=== PATIENT | male | born 1945 | race Caucasian/White ===

== ENCOUNTER → 2017-12-30 | Outpatient (CLI) | payer OTHER, MEDICARE ==
[~2017-12-30] VITALS: Ht 175.3 cm; Wt 90.7 kg
[~2017-12-30] MED LIST: AMOXICILLIN875 MG PO; FLOMAX0.4 MG PO; FLONASE 0.05%50 MCG NASAL; HYDROCODON-ACE1 EAC1 PO; LANSOPRAZOLE30 MG PO; LEXAPRO PO; LIPITOR20 MG PO; LYRICA PO; OXYCODONE-ACET1 EAC2 PO; OXYCONTIN PO; OXYIR 5 MG CAPSU5 M1 PO; PEPCID40 MG PO; POTASSIUM20 PO; PRAVACHOL40 MG PO; VITAMIN D1000 UNI1 PO; WELLBUTRIN SR150 MG PO; XANAX 0.25 MG0.25 MG PO
--- NOTE | ~2017-12-30 | S ---
[facility] [place] [address] SURGICAL PATH RPT PROCEDURE Name: ANTIONE ZABALA Room #: REG [facility].#: [id number] Admission: 12/30/17 Date of : 43 Discharge: Report #: [id number] Path Case #: [id number] PATHOLOGY REPORT COLLECTION DATE: 12/30/2017 RECEIVED DATE: 12/30/2017 SUBMITTING PHYS: Dr. Abdirahman Steve OTHER PHYS: Dr. Juanito Vallejo SPECIMEN(S) RECEIVED: A.Duodenum rule out sprue B.Distal esophagus history Barretts's C.Polyp at cecum x3 D.Polyp at transverse colon x2 E.Polyp at sigmoid colon * * * * * * * * * * * * FINAL DIAGNOSIS: A. Small bowel mucosa, duodenum rule out sprue, endoscopic biopsy: - No diagnostic abnormalities present. B. Gastroesophageal mucosa, distal esophagus history of Dempsey's, endoscopic biopsy: - Specialized columnar epithelium (gastric cardia-type mucosa) with intestinal metaplasia, consistent with Dempsey's metaplasia. (Please see comment). - Negative for dysplasia. - Squamous mucosa with mild esophagitis. C. Polyp x3, at cecum, endoscopic biopsy: - Compatible with a tubular adenoma. - Negative for high-grade dysplasia. D. Polyp x2, at transverse colon, endoscopic biopsy: - Tubular adenoma x2. - Negative for high-grade dysplasia. E. Polyp, at sigmoid colon, endoscopic biopsy: - Minute tubular adenoma. - Negative for high-grade dysplasia. (IUV:corby; 12/31/2017) COMMENT: The above diagnosis of Dempsey's esophagus is made due to the presence of intestinal metaplasia with the assumption that the biopsies were obtained from the columnar mucosa in the distal esophagus located at least 1 cm proximal to the top of the gastric folds as per the 2016 ACG Guidelines. (IUV:corby; 12/31/2017) PATHOLOGIST: Elizabeth [place] [address] SURGICAL PATH RPT PROCEDURE Name: ANTIONE ZABALA Room #: REG CLI [facility].#: [id number] Admission: 12/30/17 Date of : 43 Discharge: Report #: [id number] Path Case #: [id number] REPORT ELECTRONICALLY SIGNED BY: Elizabeth Rodriguez M.D. DATE/TIME: 12/31/2017 12:30 * * * * * * * * * * * * GROSS PATHOLOGY: A. Received in formalin labeled, "Antione Zabala BX duodenum rule out sprue," are 5 fragments of boyd soft tissue measuring between 0.3 x 0.2 x 0.1 cm and 0.5 x 0.3 x 0.2 cm. They are entirely submitted in cassette A1. B. Received in formalin labeled, "Antione Zabala BX distal esophagus history Dempsey's," are 3 fragments of boyd soft tissue measuring between 0.2 x 0.2 x 0.1 cm and 0.4 x 0.2 x 0.1 cm. They are entirely submitted in cassette B1. C. The specimen is received in formalin, labeled "Antione Zabala, polyp at cecum x3," and consists of 3 fragments of boyd-brown soft tissue measuring between 0.9 x 0.7 x 0.5 cm and 0.8 x 0.7 x 0.1 cm. They are inked, sectioned, and entirely submitted in cassettes C1. D. The specimen is received in formalin, labeled "Antione Zabala, polyp at transverse colon x2," and consists of 2 fragments of boyd-light brown soft tissue measuring 0.3 x 0.2 x 0.1 cm and 1.0 x 0.3 x 0.3 cm. They are entirely submitted in cassette D1. E. The specimen is received in formalin, labeled "Antione Zabala, polyp at sigmoid colon," and consists of 2 fragments of boyd soft tissue measuring 0.2 x 0.2 x 0.1 cm and 0.2 x 0.2 x 0.2 cm. They are entirely submitted in cassette E1. (SDY; 12/30/2017) CLINICAL HISTORY: History anemia, history Dempsey's Hiatal hernia, colon polyps INITIAL CPT CODE(S): A; 69922 B; 61051 C; 89605 D; 85235 E; 69419 Professional services performed by [facility] at [address] , [place] [address] Technical services performed by [facility] at [address] [place] [address], [address] [address]. [address] [address] SURGICAL PATH RPT PROCEDURE Name: ANTIONE ZABALA Room #: REG [facility]#: [id number] Admission: 12/30/17 Date of : 43 Discharge: Report #: [id number] Path Case #: [id number] [facility] [address] [address] PHONE: [phone] DIRECTOR: Jeb Duncan M.D. * * * END OF REPORT * * *
--- NOTE | ~2017-12-30 | P ---
[facility] [place] [address] PROCEDURE REPORT Name: ANTIONE [facility]ABALA [id number] Admission: 12/30/17 Attend Phys: Abdirahman Marquez Discharge: Date of : 43 Report #: [id number] THIS REPORT FOR: //name// CC: Abdirahman Vallejo MD DATE OF SERVICE: 12/30/2017 PROCEDURE PERFORMED: Upper endoscopy with biopsies. HISTORY OF PRESENT ILLNESS: The patient is a 72-year-old male with a history of gastroesophageal reflux disease and Dempsey's esophagus. Last upper endoscopy with biopsies was 6 years ago. He does take Prevacid on a daily basis. He denies any dysphagia or odynophagia. He has a history of a large hiatal hernia. Apparently, recent routine labs showed iron deficiency. He is unsure if he has anemia, however. He denies any obvious blood in his stools. He is on no anticoagulation therapy. Plan is for EGD and colonoscopy today. DESCRIPTION OF PROCEDURE: The risks and benefits of the procedure were explained to the patient, those risks including but not limited to bleeding, perforation and the risk of sedation. He understood these risks and gave informed consent. Sedation was given using propofol per anesthesia. Next, using a standard Fujinon upper endoscope, the scope was placed in the patient's mouth and advanced under direct vision through the esophagus, stomach and into the second portion of the duodenum. The larynx was normal in appearance. The upper and mid esophagus was normal in appearance. In the distal esophagus, there was a possible short segment of Dempsey's noted extending approximately 4-5 mm above the GE junction. Biopsies were obtained. No evidence of esophagitis or inflammation. Upon entering the stomach, a large hiatal hernia was again noted, approximately 50% of the stomach is within the hiatal hernia. Overall, the gastric mucosa was normal. No evidence of ulcerations or erosions. No evidence of bleeding. The pylorus was normal and patent. The duodenal bulb, first and second portion were all normal. Because of his history of iron deficiency, biopsies were obtained to rule out the possibility of celiac sprue. The scope was then withdrawn and the procedure terminated. The patient tolerated the procedure well. IMPRESSION: 1. Short segment Dempsey's esophagus. 2. Large hiatal hernia. 3. Otherwise, normal upper endoscopy. RECOMMENDATIONS: 1. Await biopsy results. 2. Continue daily PPI therapy. [address] [address] PROCEDURE REPORT Name: ANTIONE ZABALA Room #: REG CLI Jaycee#: [id number] Admission: 12/30/17 Attend Phys: Abdirahman Marquez Discharge: Date of : 43 Report #: [id number] 3. We will proceed with colonoscopy next today. Thank you for allowing me to participate in his care. <ELECTRONICALLY SIGNED> By: Abdirahman Steve MD 01/01/18 1418 1115 1715 Abdirahman Steve MD /awilda
--- NOTE | ~2017-12-30 | P ---
[facility] [place] [address] PROCEDURE REPORT Name: ANTIONE ZABALA Room #: REG [facility]#: [id number] Admission: 12/30/17 Attend Phys: Abdirahman Marquez Discharge: Date of : 43 Report #: [id number] THIS REPORT FOR: //name// CC: Abdirahman Vallejo MD DATE OF SERVICE: 12/30/2017 PROCEDURE PERFORMED: Colonoscopy with polypectomies. HISTORY OF PRESENT ILLNESS: The patient is a 72-year-old male who is here for routine repeat colonoscopy. He has a history of polyps on last colonoscopy 6 years ago. No family history of colon cancer. Denies any blood in his stools, but he does have a history of iron deficiency. DESCRIPTION OF PROCEDURE: The risks and benefits of the procedure were explained to the patient. Those risks including but not limited to bleeding, perforation, the risk of sedation. He understood these risks and gave informed consent. Sedation was given using propofol per anesthesia. Next, a digital rectal exam was initially performed, which was normal. Next, using a standard [employer] Product[employer]on colonoscope, the scope was placed in the patient's anus and advanced under direct vision to the cecum. The overall prep was excellent. In the cecum, 2 polyps were noted. One was 3 mm in size and removed with cold forceps, the larger was a linear type polyp. This was approximately 6-7 mm in size. This was removed in several pieces by snare cautery. There was no active bleeding; however, I did place a single endoclip without difficulty. The remaining cecum was normal. Ascending colon was normal. In the transverse colon, 2 polyps were noted, one was a 4 mm and removed with cold forceps, the other one was 5 mm, and removed by snare cautery. Descending colon was normal. Multiple diverticula were noted in the sigmoid colon. A 3 mm sessile polyp also removed in the sigmoid colon by cold forceps. The rectal mucosa was normal. On retroflexion, no abnormalities were noted other than the small internal hemorrhoids. The scope was then withdrawn and the procedure terminated. The patient tolerated the procedure well. IMPRESSION: 1. Colonic polyps as described above. 2. Sigmoid diverticulosis. 3. Small internal hemorrhoids. 4. Otherwise, normal colonoscopy. RECOMMENDATIONS: 1. Await biopsy results. 2. Repeat colonoscopy in [address] [address] PROCEDURE REPORT Name: ANTIONE ZABALA Room #: REG [facility]#: [id number] Admission: 12/30/17 Attend Phys: Abdirahman Marquez Discharge: Date of : 43 Report #: [id number] Thank you for allowing me to participate in his care. <ELECTRONICALLY SIGNED> By: Abdirahman Steve MD 01/01/18 1418 1158 1739 Abdirahman Steve MD /awilda
== END | disposition home or self-care (01) ==
LOC: GI 09:29
DX: Z09 Encounter for follow-up examination after completed treatment for conditions other than malignant neoplasm (principal); Z86.010 Personal history of colon polyps; D12.5 Benign neoplasm of sigmoid colon; D12.3 Benign neoplasm of transverse colon; D12.0 Benign neoplasm of cecum; K57.30 Diverticulosis of large intestine without perforation or abscess without bleeding; K22.70 Barrett's esophagus without dysplasia; K64.8 Other hemorrhoids; K44.9 Diaphragmatic hernia without obstruction or gangrene; K21.0 Gastro-esophageal reflux disease with esophagitis; Z98.890 Other specified postprocedural states; Z79.899 Other long term (current) drug therapy; Z86.2 Personal history of diseases of the blood and blood-forming organs and certain disorders involving the immune mechanism
CPT/HCPCS: 62110; 62900